=== PATIENT | male | born 2000 | race Hispanic/Latino ===

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

== ENCOUNTER 2021-12-27 05:28 | Emergency (ER) | payer SELFPAY ==
[~2021-12-27] VITALS: Ht 180.3 cm; Wt 90.7 kg
[2021-12-27] MEDS ORDERED: IBUPROFEN 400 MG TAB PO ONE (06:15)
== END 2021-12-27 06:25 | disposition home or self-care (01) ==
LOC: ER 05:54
DX: H66.92 Otitis media, unspecified, left ear (principal)
CPT/HCPCS: 99283